=== PATIENT | female | born 1950 | race Hispanic/Latino ===

== ENCOUNTER 2017-03-12 11:49 | Day surgery (SDC) | payer MEDICARE ==
[2017-03-05 08:38] VITALS: BMI 44.9
[2017-03-12 12:21] LABS: BASO # 0.02 K/mm3 (0.0-2.0); BASO % 0.4 % (0.0-3.0); EOS # 0.2 (0.0-0.7); EOS % 3.1 % (1.5-5.0); GRAN # 2.65 (1.4-6.5); GRAN % 53.9 % (50.0-68.0); HEMATOCRIT 34.5 % (36.0-48.0); LYMPH # 1.9 (1.2-3.4); LYMPH % 37.7 % (22.0-35.0); MEAN CELL VOLUME 88.2 fl (80.0-105.0); MEAN CORPUSCULAR HEMOGLOBIN 29.4 pg (25.0-35.0); MEAN CORPUSCULAR HGB CONC 33.3 g/dl (31.0-37.0); MEAN PLATELET VOLUME 9.6 fl (7.0-11.0); MONO # 0.2 (0.1-0.6); MONO % 4.9 % (1.0-6.0); RED CELL DISTRIBUTION WIDTH 13.6 % (11.5-14.5); WHITE BLOOD COUNT 4.9 10^3/ul (4.5-11.0)
[2017-03-12 12:29] LABS: BLOOD UREA NITROGEN 15 mg/dL (7-21); CALCIUM 9.9 mg/dL (8.4-10.5); CARBON DIOXIDE 28 mmol/L (21-33); CHLORIDE 105 mmol/L (98-107); CHOLESTEROL 159 mg/dL (130-200); GFR AFRICAN-AMERICAN > 60; GLUCOSE,RANDOM 128 mg/dL (70-110); SODIUM 143 mmol/L (132-148)
[2017-03-12 12:30] LABS: INR 0.99 (0.93-1.08); PARTIAL THROMBOPLASTIN TIME 25.7 Seconds (23.7-30.8)
[2017-03-12 12:55] VITALS: O2SAT 98
[2017-03-12] MEDS ORDERED: Phenylephrine 10 mg/ml Inj ONE (16:15)
[2017-03-12] MEDS ORDERED: Lidocaine 2% Inj (20ml) ONE (16:15)
[2017-03-12] MEDS ORDERED: Iohexol 350mgl/ml 50 ML ONE (16:16)
[2017-03-12] MEDS ORDERED: Iohexol 350 MG/100 ML VIAL ONE (16:16)
[2017-03-12] MEDS ORDERED: Nitroglycerin 50mg in D5W 50 MG/250 ML BOTTLE IV ONE (16:49)
[2017-03-12] MEDS ORDERED: Midazolam 2 MG/2 ML VIAL ONE (16:50)
[2017-03-12] MEDS ORDERED: Bacitracin 500 Units/gm Oint Foilpak UD TOP ONE (17:47)
[2017-03-12] MEDS ORDERED: Sodium Chloride 0.9% 1,000 ML IV SCH (18:00)
[2017-03-12 18:08] VITALS: TEMP 98.2
--- NOTE | 2017-03-12 20:39 | CP.PCM.PN ---
Subjective - Date & Time of Evaluation Date of Evaluation: 03/12/17 Time of Evaluation: 20:37 - Subjective Subjective: Patient was seen at bedside. She complained of numbness in right hand. Numbness is present since the procedure, not increasing. No pain, no weakness, no swelling. ROS:Negative except a s mentioned above. 66 year old woman is here for cardiac cath, is S/P cardiac cath. Has PMH of CAD, obesity , Objective - Vital Signs/Intake and Output Vital Signs (last 24 hours): Temp Pulse Resp BP Pulse Ox 98.2 F 86 18 152/77 H 98 03/12/17 19:30 03/12/17 19:30 03/12/17 19:30 03/12/17 19:30 03/12/17 12:00 - Medications Medications: Current Medications Acetaminophen (Tylenol 325mg Tab) 650 mg PO Q4H PRN PRN Reason: Pain, Mild (1-3) Sodium Chloride (Sodium Chloride 0.9%) 1,000 mls @ 100 mls/hr IV .Q10H ARCHIE - Labs Labs: 03/12/17 12:00 03/12/17 12:00 PT 10.7 Seconds (9.9-11.8) 03/12/17 12:00 INR 0.99 (0.93-1.08) 03/12/17 12:00 APTT 25.7 Seconds (23.7-30.8) 03/12/17 12:00 - Constitutional Appears: Well, No Acute Distress - Head Exam Head Exam: ATRAUMATIC, NORMAL INSPECTION, NORMOCEPHALIC Additional comments: Obese person , sitting in chair. - Eye Exam Eye Exam: Normal appearance - ENT Exam ENT Exam: Normal External Ear Exam - Neck Exam Neck Exam: Normal Inspection - Respiratory Exam Respiratory Exam: NORMAL BREATHING PATTERN - Cardiovascular Exam Cardiovascular Exam: absent: JVD - GI/Abdominal Exam GI & Abdominal Exam: absent: Distended - Rectal Exam Rectal Exam: Deferred - Exam Additional comments: Deferred. - Extremities Exam Extremities Exam: Normal Inspection - Back Exam Back Exam: NORMAL INSPECTION - Neurological Exam Neurological Exam: Alert, Oriented x3 - Psychiatric Exam Psychiatric exam: Normal Affect, Normal Mood - Skin Skin Exam: Normal Color Assessment and Plan - Assessment and Plan (Free Text) Assessment: Right hand numbness. S/P cardiac cath. CAD. Obesity. Plan: Reassurance. Observation. Asked nurse to call forms analyst and inform before patient can be discharged.
[2017-03-12 22:00] VITALS: BP 130/67; PULSE 78; RESP 18
--- NOTE | 2017-03-13 05:19 | CARDCATH ---
PROCEDURE DATE: 03/12/2017 PROCEDURES: 1. Left heart catheterization. 2. Coronary angiogram. CLINICAL INDICATIONS: 1. Abnormal stress test. 2. Diabetes. 3. Hypertension. 4. Hyperlipidemia. REFERRING PHYSICIAN: Mariely Aceves MD. PERFORMING PHYSICIAN: Husam Garcia MD. PROCEDURE: After informed consent, the patient was prepped and draped in the usual sterile fashion. A 2% lidocaine was given in the right wrist for local anesthesia. Using micropuncture technique, 6-Czech sheath was introduced into the right common femoral artery. Using the usual diagnostic catheters, left heart catheterization and coronary angiogram was performed. The patient tolerated the procedure well. Postprocedure, Terumo radial band applied to the right wrist with excellent hemostasis. FINDINGS: 1. Left main coronary artery is patent. 2. LAD and diagonal branches are patent. 3. Left circumflex and obtuse marginal branches are patent. 4. 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 Right coronary artery is patent. 5. LV ejection fraction is 70%. ADP is 13. No gradient across the aortic valve. No wall motion abnormalities noted. IMPRESSION: 1. Normal coronaries. 2. Normal left ventricular systolic function. Recommend medical management including risk factor modification. Husam Garcia MD
== END 2017-03-12 22:37 | disposition home or self-care (01) ==
LOC: CATH 11:49 → 2RSO 18:12 → CATH 22:37
PROVIDERS: ATTEND Internal Medicine Cardiovascular Disease
DX: R94.39 Abnormal result of other cardiovascular function study (principal); I10 Essential (primary) hypertension; E11.9 Type 2 diabetes mellitus without complications; E78.5 Hyperlipidemia, unspecified; R20.0 Anesthesia of skin; E66.9 Obesity, unspecified; Z68.41 Body mass index [BMI] 40.0-44.9, adult; Z79.4 Long term (current) use of insulin
CPT/HCPCS: 36415; 80048; 80061; 85025; 85610; 85730; 86850; 86900; 93458; 99152; 99153; C1769; C1894; J1644 ×2; J2250; J3010; J7040 ×2; Q9967

== ENCOUNTER 2018-03-17 12:49 | Emergency (ER) | payer MEDICAID, MEDICARE, OTHER ==
[2018-03-17 12:50] VITALS: BMI 44.9
[2018-03-17 13:03] VITALS: RESP 18
--- NOTE | 2018-03-17 14:07 | ED PDOC ---
Arrival/HPI - General Historian: Patient - General Chief Complaint: Back Pain Time Seen by Provider: 03/17/18 13:15 - History of Present Illness Narrative History of Present Illness (Text): 03/17/18 13:48 67 year old female, past medical history of DM, HTN, hyperlipidemia, arthritis, and constipation, presents to the ED with back pain. Patient states the back pain started all of a sudden on and has progressively worsened. Described as a dull, constant, achy pain that radiates anteriorly, bilaterally. She saw her PMD on sunday who did not provide any medication for pain relief. Sunday night, the pain worsened and she took a Tylenol 3 that she had previously which provided relief and she was able to sleep. Patient endorses pain with movement and unable to lay on her back. Had a similar symptoms 2 years ago that was treated as a UTI. Denies fever, chills, nausea, vomiting, shortness of breath, headache, dizziness, chest pain, palpitations, dysuria, hematuria, burning or itching with urination, increased frequency, or incontinence. PMD: Dr. Mukesh Brush ([facility]) Past Medical History - Provider Review Nursing Documentation Reviewed: Yes - Reproductive Menopause: Yes - Cardiac Hx Cardiac Disorders: Yes Hx Hypertension: Yes - Pulmonary Hx Respiratory Disorders: No - Neurological Hx Neurological Disorder: No - HEENT Hx HEENT Disorder: Yes Hx Cataracts: Yes - Renal Hx Renal Disorder: No - Endocrine/Metabolic Hx Endocrine Disorders: Yes Hx Diabetes Mellitus Type 1: Yes Hx Hypothyroidism: Yes - Hematological/Oncological Hx Blood Disorders: No - Integumentary Hx Dermatological Disorder: No - Musculoskeletal/Rheumatological Hx Musculoskeletal Disorders: Yes Hx Arthritis: Yes - Gastrointestinal Hx Gastrointestinal Disorders: Yes Hx Gastritis: Yes Hx Gastroesophageal Reflux: Yes - Genitourinary/Gynecological Hx Genitourinary Disorders: No - Psychiatric Hx Psychophysiologic Disorder: No Hx Substance Use: No - Surgical History Hx Tonsillectomy: Yes (41 YRS AGO) - Anesthesia Hx Anesthesia: Yes Hx Anesthesia Reactions: No Hx Malignant Hyperthermia: No - Suicidal Assessment Feels Threatened In Home Enviroment: No Family/Social History - Physician Review Nursing Documentation Reviewed: Yes Family/Social History: No Known Family HX Smoking Status: Never Smoked Hx Alcohol Use: Yes (MODERATE IN THE PAST) Hx Substance Use: No Allergies/Home Meds Allergies/Adverse Reactions: Allergies No Known Allergies Allergy (Verified 03/17/18 13:03) Home Medications: Home Meds Medication Instructions Recorded Confirmed Aspirin [Ecotrin] 81 mg PO DAILY 03/05/17 03/17/18 Dulaglutide [Trulicity] 0.75 mg SC Q7D 03/05/17 03/17/18 Enalapril Maleate [Vasotec] 10 mg PO DAILY 03/05/17 03/17/18 Furosemide [Lasix] 40 mg PO DAILY 03/05/17 03/17/18 Insulin Aspart, Recombinant 20 unit SQ DAILY 03/05/17 03/17/18 [Novolog] Insulin Glargine, Recombina 100 unit SC DAILY 03/05/17 03/17/18 [Lantus] Insulin Lispro [humALOG] 20 units SC BID 03/05/17 03/17/18 Levothyroxine [Synthroid] 100 mcg PO DAILY 03/05/17 03/17/18 Meloxicam [Mobic] 15 mg PO DAILY 03/05/17 03/17/18 MetFORMIN [glucOPHAGE] 1,000 mg PO BID 03/05/17 03/17/18 Simvastatin [Zocor] 40 mg PO DAILY 03/05/17 03/17/18 Review of Systems - Physician Review All systems were reviewed & negative as marked: Yes - Review of Systems Constitutional: absent: Fevers, Night Sweats Eyes: absent: Vision Changes ENT: absent: Tinnitus Respiratory: absent: SOB, Cough Cardiovascular: absent: Chest Pain, Palpitations Gastrointestinal: Constipation. absent: Abdominal Pain, Nausea, Vomiting Genitourinary Female: absent: Dysuria, Frequency, Hematuria, Urine Output Changes Musculoskeletal: Back Pain Skin: absent: Rash, Skin Lesions Neurological: absent: Headache, Dizziness Endocrine: absent: Diaphoresis Physical Exam Vital Signs Reviewed: Yes Temperature: Afebrile Blood Pressure: Normal Pulse: Tachycardic Respiratory Rate: Normal Appearance: Positive for: Well-Appearing, Non-Toxic, Uncomfortable Pain Distress: Moderate Mental Status: Positive for: Alert and Oriented X 3 - Systems Exam Head: Present: Atraumatic, Normocephalic Pupils: Present: PERRL Extroacular Muscles: Present: EOMI Mouth: Present: Dry Pharnyx: Present: Normal Nose (External): Present: Atraumatic Respiratory/Chest: Present: Clear to Auscultation, Good Air Exchange. No: Respiratory Distress, Accessory Muscle Use Cardiovascular: Present: Regular Rate and Rhythm, Normal S1, S2. No: Murmurs Abdomen: Present: Tenderness. No: Distention, Peritoneal Signs, Rebound, Guarding Back: Present: CVA Tenderness, Paraspinal Tenderness Neurological: Present: Speech Normal Skin: Present: Warm, Dry Psychiatric: Present: Alert, Oriented x 3 Vital Signs Temp Pulse Resp BP Pulse Ox 03/17/18 17:11 98.6 F 72 18 120/77 99 03/17/18 16:00 98.3 F 78 18 123/79 98 03/17/18 14:50 82 18 128/79 98 03/17/18 13:01 99 F 100 H 18 122/79 100 Medical Decision Making Reassessment Condition: Improved ED Course and Treatment: 03/17/18 14:13 67F presents to the ED with worsening flank pain radiating anteriorly bilaterally. Afebrile. CBC, CMP, UA, and CT ordered. Toradol for pain. UA showed trace leukocyte esterase. CBC showed a mild increase in white blood cells. PROCEDURE: CT Abdomen and Pelvis without Oral or IV contrast. HISTORY: back pain, r/o hydronephrosis, r/o kidney stones COMPARISON: None available TECHNIQUE: Contiguous axial images of the abdomen and pelvis. No oral or IV contrast administered. Coronal and Sagittal reformats generated and reviewed. Radiation dose: Total exam DLP = 1164.36 mGy-cm. This CT exam was performed using one or more of the following dose reduction techniques: Automated exposure control, adjustment of the mA and/or kV according to patient size, and/or use of iterative reconstruction technique. FINDINGS: There is limited evaluation of the solid organs without the administration of IV contrast. LOWER THORAX: No visible consolidation, pleural effusion, or pneumothorax. LIVER: Unremarkable unenhanced appearance. GALLBLADDER AND BILE DUCTS: Unremarkable unenhanced appearance. PANCREAS: Unremarkable unenhanced appearance. SPLEEN: Unremarkable unenhanced appearance. ADRENALS: Unremarkable unenhanced appearance. KIDNEYS AND URETERS: 13 mm low-density lesion, right kidney measures approximately 8 HU, likely cyst. No hydronephrosis or obstructing renal calculus. BLADDER: Under distended urinary bladder limits evaluation. REPRODUCTIVE: Lobulated enlarged uterus containing calcifications consistent with fibroid uterus. APPENDIX: The appendix is not identified. No secondary signs of acute appendicitis. BOWEL: The stomach is nondistended. Lack of oral contrast limits evaluation for bowel pathology. The bowel loops appear within normal limits of caliber without evidence of intestinal obstruction. PERITONEUM: No significant free fluid. No definite free air. LYMPH NODES: No bulky lymphadenopathy identified. VASCULATURE: No aortic aneurysm. BONES: Degenerative changes. OTHER FINDINGS: Pelvic calcifications, likely phleboliths. IMPRESSION: 13 mm low-density lesion, right kidney measures approximately 8 HU, likely cyst. No hydronephrosis or obstructing renal calculus. Lobulated enlarged uterus containing calcifications consistent with fibroid uterus. Additional findings as above. 03/17/18 16:54 Patient states pain has improved significantly. Was able to lie comfortably on her back and relax while in the ED. Patient will be discharged with Ciprofloxacin 500mg BID for 7 days. Please take antibiotics as prescribed. Please follow up with your primary medical doctor within 3-5 days. If symptoms reoccur or worsen, please return to the ED. 03/17/18 17:37 Patient verbalized agreement and understanding of treatment plan. Case discussed and reviewed with attending provider. (Miguelangel Fofana) 03/17/18 17:15 Patient Seen With Resident: In agreement with resident note. Patient was seen and evaluated with resident, came up with plan and treatment together. 67 year old F p/w bilateral flank pain. On exam, R CVA tenderness. (Vishal Gonzalez) - Lab Interpretations Lab Results: 03/17/18 13:10 03/17/18 13:10 Lab Results 03/17/18 13:10: Sodium 139, Potassium 4.1, Chloride 98, Carbon Dioxide 27, Anion Gap 18, BUN 11, Creatinine 0.7, Est GFR ( Amer) > 60, Est GFR (Non- Af Amer) > 60, Random Glucose 165 H, Calcium 10.0, Total Bilirubin 0.6, AST 21, ALT 12, Alkaline Phosphatase 98, Total Protein 8.4 H, Albumin 4.6, Globulin 3.8 , Albumin/Globulin Ratio 1.2 03/17/18 13:10: Urine Color Yellow, Urine Appearance Clear, Urine pH 6.0, Ur Specific [place] 1.025, Urine Protein Negative, Urine Glucose (UA) Negative, Urine Ketones Trace H, Urine Blood Negative, Urine Nitrate Negative, Urine Bilirubin Negative, Urine Urobilinogen 0.2, Ur Leukocyte Esterase Trace H, Urine RBC Negative, Urine WBC 1 - 3, Ur Epithelial Cells 1 - 3, Urine Bacteria Few 03/17/18 13:10: WBC 11.7 H D, RBC 4.28, Hgb 12.5, Hct 36.8, MCV 86.0, MCH 29.2, MCHC 34.0, RDW 14.3, Plt Count 420, MPV 9.7, Gran % 69.9 H, Lymph % (Auto) 21.2 L, Logan % (Auto) 7.8 H, Eos % (Auto) 0.9 L, Baso % (Auto) 0.2, Gran # 8.16 H, Lymph # (Auto) 2.5, Logan # (Auto) 0.9 H, Eos # (Auto) 0.1, Baso # (Auto) 0.02 - RAD Interpretation Radiology Orders: 03/17/18 14:16 ABDOMEN & PELVIS [ABD & PELVIS W/O PO OR IV CONT] [CT] Stat - Medication Orders Current Medication Orders: Discontinued Medications Ketorolac Tromethamine (Toradol) 30 mg IVP STAT STA Stop: 03/17/18 13:59 Last Admin: 03/17/18 14:31 Dose: 30 mg MAR Pain Assessment Document 03/17/18 14:31 [facility] (Rec: 03/17/18 14:31 [facility] [id number]) Pain Reassessment Is this a pain reassessment? No Sleep Is patient sleeping during reassessment? No Presence of Pain Presence of Pain Yes Pain Scale Used Pain Scale Used Numeric IVP Administration Document 03/17/18 14:31 [facility] (Rec: 03/17/18 14:31 [id number] Charges for Administration # of IVP Administrations 1 Disposition/Present on Arrival - Present on Arrival Any Indicators Present on Arrival: No History of DVT/PE: No History of Uncontrolled Diabetes: No Urinary Catheter: No History of Decub. Ulcer: No History Surgical Site Infection Following: None - Disposition Have Diagnosis and Disposition been Completed?: Yes Disposition Time: 16:59 Patient Plan: Discharge - Disposition Diagnosis: UTI (urinary tract infection) Disposition: HOME/ ROUTINE Condition: IMPROVED Discharge Instructions (ExitCare): Urinary Tract Infection, Adult (DC) Additional Instructions: Patient will be discharged with Ciprofloxacin 500mg BID for 7 days. Please take antibiotics as prescribed. Please follow up with your primary medical doctor within 3-5 days. If symptoms reoccur or worsen, please return to the ED. Prescriptions: Ciprofloxacin [Cipro] 500 mg PO BID 7 Days #14 tab Referrals: Adarsh Centeno MD [Primary Care Provider] - Follow up with primary Forms: [facility] (Bangladeshi)
[2018-03-17 14:48] LABS: URINE BILIRUBIN NEGATIVE (NEGATIVE); URINE BLOOD NEGATIVE (NEGATIVE); URINE GLUCOSE (UA) NEGATIVE (NEGATIVE); URINE LEUKOCYTE ESTERASE TRACE Leu/uL (NEGATIVE); URINE PROTEIN NEGATIVE mg/dL (<30 mg/dL); URINE UROBILINOGEN 0.2 E.U./dL (<1 E.U./dL)
[2018-03-17 14:49] LABS: BASO # 0.02 K/mm3 (0.0-2.0); BASO % 0.2 % (0.0-3.0); EOS # 0.1 (0.0-0.7); EOS % 0.9 % (1.5-5.0); GRAN # 8.16 (1.4-6.5); GRAN % 69.9 % (50.0-68.0); HEMOGLOBIN 12.5 g/dL (12.0-16.0); LYMPH # 2.5 (1.2-3.4); LYMPH % 21.2 % (22.0-35.0); MEAN CORPUSCULAR HEMOGLOBIN 29.2 pg (25.0-35.0); MEAN PLATELET VOLUME 9.7 fl (7.0-11.0); MONO # 0.9 (0.1-0.6); MONO % 7.8 % (1.0-6.0); RBC 4.28 10^6/uL (3.5-6.1); RED CELL DISTRIBUTION WIDTH 14.3 % (11.5-14.5); URINE APPEARANCE CLEAR (CLEAR); URINE COLOR YELLOW (YELLOW); WHITE BLOOD COUNT 11.7 10^3/ul (4.5-11.0)
[2018-03-17 15:00] LABS: ALB/GLOB RATIO 1.2 (1.1-1.8); ALBUMIN 4.6 g/dL (3.0-4.8); ALT/SGPT 12 U/L (7-56); AST/SGOT 21 U/L (14-36); BLOOD UREA NITROGEN 11 mg/dL (7-21); GFR NON-AFRICAN AMERICAN > 60
[2018-03-17 15:05] LABS: URINE BACTERIA FEW (NEG); URINE RBC NEGATIVE /hpf (0-2)
--- NOTE | 2018-03-17 16:34 | CT ---
PROCEDURE: CT Abdomen and Pelvis without Oral or IV contrast. HISTORY: back pain, r/o hydronephrosis, r/o kidney stones COMPARISON: None available TECHNIQUE: Contiguous axial images of the abdomen and pelvis. No oral or IV contrast administered. Coronal and Sagittal reformats generated and reviewed. Radiation dose: Total exam DLP = 1164.36 mGy-cm. This CT exam was performed using one or more of the following dose reduction techniques: Automated exposure control, adjustment of the mA and/or kV according to patient size, and/or use of iterative reconstruction technique. FINDINGS: There is limited evaluation of the solid organs without the administration of IV contrast. LOWER THORAX: No visible consolidation, pleural effusion, or pneumothorax. LIVER: Unremarkable unenhanced appearance. GALLBLADDER AND BILE DUCTS: Unremarkable unenhanced appearance. PANCREAS: Unremarkable unenhanced appearance. SPLEEN: Unremarkable unenhanced appearance. ADRENALS: Unremarkable unenhanced appearance. KIDNEYS AND URETERS: 13 mm low-density lesion, right kidney measures approximately 8 HU, likely cyst. No hydronephrosis or obstructing renal calculus. BLADDER: Under distended urinary bladder limits evaluation. REPRODUCTIVE: Lobulated enlarged uterus containing calcifications consistent with fibroid uterus. APPENDIX: The appendix is not identified. No secondary signs of acute appendicitis. BOWEL: The stomach is nondistended. Lack of oral contrast limits evaluation for bowel pathology. The bowel loops appear within normal limits of caliber without evidence of intestinal obstruction. PERITONEUM: No significant free fluid. No definite free air. LYMPH NODES: No bulky lymphadenopathy identified. VASCULATURE: No aortic aneurysm. BONES: Degenerative changes. OTHER FINDINGS: Pelvic calcifications, likely phleboliths. IMPRESSION: 13 mm low-density lesion, right kidney measures approximately 8 HU, likely cyst. No hydronephrosis or obstructing renal calculus. Lobulated enlarged uterus containing calcifications consistent with fibroid uterus. Additional findings as above.
[2018-03-17 17:12] VITALS: BP 120/77; PULSE 72; TEMP 98.6; O2SAT 99
== END 2018-03-17 17:11 | disposition home or self-care (01) ==
LOC: ED 12:49
DX: N39.0 Urinary tract infection, site not specified (principal); E78.5 Hyperlipidemia, unspecified; E11.9 Type 2 diabetes mellitus without complications; I10 Essential (primary) hypertension; E03.9 Hypothyroidism, unspecified
CPT/HCPCS: 74176; 80053; 81001; 85025; 87086; 96374; 99283; J1885